=== PATIENT | male | born 1980 | race African-American/Black ===

== ENCOUNTER → 2021-12-06 | Outpatient (CLI) | payer OTHER ==
--- NOTE | 2021-12-06 12:23 | KCIC ---
Examination: MRI of the left wrist without contrast HISTORY: History of ulnar sided left-sided left wrist pain, popping sensation COMPARISON: None available TECHNIQUE: Multiplanar, multisequence MR imaging of the left wrist was performed without contrast FINDINGS: The alignment of the carpal bones grossly appears unremarkable. The alignment of the carpal metacarpa l joints grossly appears unremarkable. The visualized scapholunate ligament, lunotriquetral ligament grossly appears intact. There is a 9 mm increased T2 focus identified abutting the anterior aspect of the identified triangular fibrocartilage complex proximal to the triquetrum could be a small ganglio n cyst mild increased T2 signal identified in the extensor carpi ulnaris tendon at the level of the u lnar styloid likely mild tendinosis. The attachment of the extensor tendons, flexor tendons grossly a ppears unremarkable. The median nerve within the carpal tunnel and ulnar nerve in the Guyon canal, grossly appears unremar kable. IMPRESSION: 1. 9 mm increased T2 signal identified abutting the anterior aspect of the triangular fibrocartilag e complex proximal to the triquetrum could be a small ganglion cyst. 2. Mild tendinosis extensor carpi ulnaris tendon at the level of the ulnar styloid. Electronically signed by: Reza Nichols MD (12/06/2021 10:59 AM) [id number]
== END ==
LOC: KCIC MRI 07:56
PROVIDERS: ATTEND General Practice
DX: M25.832 Other specified joint disorders, left wrist (principal)
CPT/HCPCS: 73221